=== PATIENT | female | born 1990 | race Caucasian/White ===

== ENCOUNTER 2023-02-10 11:55 | Emergency (ER) | payer MEDICAID | END 2023-02-10 12:30 | disposition left against medical advice (07) | LOC: MED 11:55 | DX: R10.9 Unspecified abdominal pain (principal); Z53.21 Procedure and treatment not carried out due to patient leaving prior to being seen by health care provider ==

== ENCOUNTER 2023-02-10 14:06 | Emergency (ER) | payer MEDICAID ==
[~2023-02-10] VITALS: Ht 165.1 cm; Wt 123.4 kg
[2023-02-10 14:40] VITALS: BP 119/57
--- NOTE | 2023-02-10 16:15 | NUR ---
Per Dish Cloth Inspector, patient not in lobby.
--- NOTE | 2023-02-10 16:24 | NUR ---
no answer in lobby or outside ED x1 lwbs by physician
--- NOTE | 2023-02-10 16:40 | NUR ---
Per Duct Layer Helper, patient not in lobby.
--- NOTE | 2023-02-10 17:52 | NUR ---
made call out to er and outside lobby, no answer x2 lwbs by physician
== END 2023-02-10 16:15 | disposition left against medical advice (07) ==
LOC: MED 14:06
DX: R10.9 Unspecified abdominal pain (principal); R11.2 Nausea with vomiting, unspecified; Z53.21 Procedure and treatment not carried out due to patient leaving prior to being seen by health care provider
CPT/HCPCS: 81025; 99281